=== PATIENT | female | born 1970 | race Caucasian/White ===

== ENCOUNTER 2019-05-14 19:03 | Emergency (ER) | payer OTHER ==
[~2019-05-14] VITALS: Ht 170.2 cm; Wt 77.1 kg
[2019-05-14] MEDS ORDERED: VALTREX500 MG PO (19:35)
[2019-05-14] MEDS ORDERED: ESTRACE0.5 MG PO (19:36)
[2019-05-14] MEDS ORDERED: CRUTCH1 EACH (20:35)
[2019-05-14] MEDS ORDERED: NORCO 5-325 TA1 EACH PO (20:35)
== END 2019-05-14 20:57 | disposition home or self-care (01) ==
LOC: ED 19:03
DX: S93.602A Unspecified sprain of left foot, initial encounter (principal); Z88.0 Allergy status to penicillin; Z88.5 Allergy status to narcotic agent; Z79.899 Other long term (current) drug therapy; W22.09XA Striking against other stationary object, initial encounter
CPT/HCPCS: 73630; 99283-25

== ENCOUNTER 2024-11-23 06:35 | Emergency (ER) | payer MEDICARE, MEDICAID ==
[~2024-11-23] VITALS: Ht 170.2 cm; Wt 78.0 kg
[~2024-11-23 06:35] MED LIST: CRUTCH1 EACH; ESTRACE0.5 MG PO; NORCO 5-325 TA1 EACH PO; VALTREX500 MG PO
[2024-11-23] MEDS ORDERED: KETOROLAC TROMETHAMINE 15 MG/ML VIAL IV ONE (07:00)
[2024-11-23 07:13] LABS: BLOOD/HGB, URINE MODERATE (Negative); KETONE, URINE TRACE (Negative); LEUK ESTERASE, URINE MODERATE (negative); NITRITE, URINE POSITIVE (negative)
[2024-11-23 07:15] LABS: BASOPHILS 1.5 % (0.1-1.2); EOSINOPHILS 5.4 % (0.7-5.8); LYMPHOCYTES 30.8 % (19.3-51.7); MCH 30.6 PG (25.6-32.2); MCHC 34.8 g/dL (32.2-35.5); MCV 87.8 fL (79.4-94.8); MONOCYTES 8.2 % (4.7-12.5); NEUTROPHILS 53.5 % (34.0-71.1); RBC 4.77 M/uL (3.93-5.22)
[2024-11-23 07:18] LABS: BACTERIA, URINE 2+ /hpf (negative); CASTS, URINE NONE SEEN \\lpf; CRYSTALS, URINE NONE SEEN (0-1+); EPITHELIAL CELLS, URINE SQUAMOUS 1+ /lpf (0-1+); REFLEX CULTURE, URINE Yes (No)
[2024-11-23 07:28] LABS: ALT (SGPT) 21.0 U/L (14-59); AST (SGOT) 13.0 U/L (15-37); GLOMERULAR FILTRATION RATE,EST 104.0 mL/min (>60); PROTEIN, TOTAL 7.5 g/dL (6.4-8.2); UREA NITROGEN 9.0 mg/dL (7-18)
[2024-11-23] MEDS ORDERED: ONDANSETRON 4 MG TAB ODT SL ONE (07:30)
[2024-11-23] MEDS ORDERED: OXYCODONE/APAP 5/325 TAB PO ONE (07:30)
[2024-11-23] MEDS ORDERED: CEPHALEXIN MONOHYDRATE 500 MG CAP PO ONE (08:45)
[2024-11-23] MEDS ORDERED: HYDROCODON-ACE1 EA10 PO (08:48)
[2024-11-23] MEDS ORDERED: CEPHALEXIN500 MG PO (08:48)
[2024-11-23] MEDS ORDERED: ONDANSETRON ODT4 MG PO (08:48)
[2024-11-23 08:58] VITALS: BP 138/66
== END 2024-11-23 08:58 | disposition home or self-care (01) ==
LOC: ED 06:35
PROVIDERS: Internal Medicine
DX: N39.0 Urinary tract infection, site not specified (principal); Z79.899 Other long term (current) drug therapy; Z88.0 Allergy status to penicillin; Z88.5 Allergy status to narcotic agent
CPT/HCPCS: 36415; 74176; 80053; 81001; 85025; 87077; 87088; 87186; 96374; 96375; 99284-25; A9270; J1885; J2405

== ENCOUNTER 2025-03-08 15:51 | Emergency (ER) | payer MEDICARE, MEDICAID ==
[~2025-03-08] VITALS: Ht 170.2 cm; Wt 90.0 kg
[~2025-03-08 15:51] MED LIST changes: +CEPHALEXIN500 MG PO; +HYDROCODON-ACE1 EA10 PO; +ONDANSETRON ODT4 MG PO
[2025-03-08 18:22] LABS: BASOPHILS 0.6 % (0.1-1.2); EOSINOPHILS 1.8 % (0.7-5.8); LYMPHOCYTES 20.7 % (19.3-51.7); MCH 30.0 PG (25.6-32.2); MCHC 34.1 g/dL (32.2-35.5); MCV 88.0 fL (79.4-94.8); MONOCYTES 6.5 % (4.7-12.5); NEUTROPHILS 70.0 % (34.0-71.1); RBC 4.90 M/uL (3.93-5.22)
[2025-03-08 18:42] LABS: ALT (SGPT) 24.0 U/L (14-59); AST (SGOT) 15.0 U/L (15-37); GLOMERULAR FILTRATION RATE,EST 79.0 mL/min (>60); PROTEIN, TOTAL 7.6 g/dL (6.4-8.2); UREA NITROGEN 8.0 mg/dL (7-18)
[2025-03-08] MEDS ORDERED: CLINDAMYCIN PHOSPHATE/D5W 900 MG/50 ML PIGGYBACK IV ONE (19:45)
[2025-03-08] MEDS ORDERED: LACTATED RINGER'S 1,000 ML IV ONE (19:45)
[2025-03-08] MEDS ORDERED: fentaNYL citrate 100 MCG/2 ML VIAL IV ONE (20:30)
[2025-03-08] MEDS ORDERED: HYDROmorphone HCL 1 MG/ML SYR IV PRN (22:30)
[2025-03-08] MEDS ORDERED: CLEOCIN HCL300 MG PO (23:24)
[2025-03-08] MEDS ORDERED: HYDROCODON-ACE1 EA10 PO (23:24)
[2025-03-08] MEDS ORDERED: HYDROCODONE BIT/ACETAMINOPHEN 5/325 MG 1 TAB HOME.PACK PO ONE (23:30)
[2025-03-09 00:15] VITALS: BP 151/72
== END 2025-03-09 00:16 | disposition home or self-care (01) ==
LOC: ED 15:51
PROVIDERS: Emergency Medicine
DX: K04.7 Periapical abscess without sinus (principal); Z88.0 Allergy status to penicillin; Z88.5 Allergy status to narcotic agent; Z88.2 Allergy status to sulfonamides; Z79.2 Long term (current) use of antibiotics; Z79.899 Other long term (current) drug therapy
CPT/HCPCS: 36415; 70487; 80053; 83735; 84484; 84703; 85025; 96365; 96375; 99283-25; A9270; J1171; J3010; J3490; J7121; Q9967